=== PATIENT | male | born 1970 | race Caucasian/White ===

== ENCOUNTER 2022-10-05 07:56 | Emergency (ER) | payer BC ==
[~2022-10-05] VITALS: Ht 172.7 cm; Wt 79.5 kg
[2022-10-05 08:53] LABS: BASOPHILS # (AUTO) 0.1 X10'3 (0-0.2); EOSINOPHILS % (AUTO) 0.7 % (0-6); HEMATOCRIT 47.5 % (42.0-52.0); HEMOGLOBIN 16.1 g/dl (14.0-17.9); LYMPHOCYTES # (AUTO) 1.1 X10'3 (1.1-4.8); LYMPHOCYTES % (AUTO) 19.1 % (21-51); MEAN CORPUSCULAR VOLUME 91.1 FL (78-98); MEAN PLATELET VOLUME 7.1 FL (7.4-10.4); MONOCYTES # (AUTO) 0.4 X10'3 (0-0.9); MONOCYTES % (AUTO) 7.6 % (2-12); NEUTROPHILS # (AUTO) 4.1 X10'3 (1.8-7.7); NEUTROPHILS % (AUTO) 71.6 % (42-75); PLATELET COUNT 223 X10'3 (140-440); RED BLOOD COUNT 5.21 X10'6 (4.70-6.10); RED CELL DISTRIBUTION WIDTH 14.2 % (11.5-14.5); WHITE BLOOD COUNT 5.8 X10'3 (4.5-11.0)
[2022-10-05] MEDS ORDERED: normal saline 1000ml 1,000 ML IV ONE (09:05)
[2022-10-05 09:07] LABS: CLARITY,URINE CLEAR (Clear); COLOR,URINE STRAW (Yellow); GLUCOSE, URINE NEGATIVE (Neg); KETONES,URINE NEGATIVE (Neg); LEUKOCYTE ESTERASE ,URINE NEGATIVE (Neg); NITRITES, URINE NEGATIVE (Neg); OCCULT BLOOD,URINE NEGATIVE (Neg); PROTEIN,URINE NEGATIVE (Neg); UROBILINOGEN,URINE 0.2 E.U/dL (0.2-1.0)
[2022-10-05 09:17] LABS: UA COLLECTION TYPE URINAL
[2022-10-05 09:27] LABS: ALANINE AMINOTRANSFERASE 34 U/L (12-78); ALBUMIN 4.3 G/DL (3.4-5.0); ALBUMIN/GLOBULIN RATIO 1.2 (1.1-1.5); ALKALINE PHOSPHATASE 90 IU/L (46-116); ANION GAP 6 (8-16); ASPARTATE AMINO TRANSFERASE 47 U/L (10-37); BILIRUBIN,TOTAL 1.1 MG/DL (0.1-1.0); BLOOD UREA NITROGEN 5 MG/DL (7-18); BUN/CREATININE RATIO 7.6 (10.0-20.0); CALCIUM 9.4 MG/DL (8.5-10.1); CHLORIDE 99 MMOL/L (99-107); CREATININE 0.66 MG/DL (0.60-1.10); GLUCOSE 121 MG/DL (70-104); POTASSIUM 4.2 MMOL/L (3.5-5.1); SODIUM 136 MMOL/L (135-145); TOTAL CARBON DIOXIDE 30.8 MMOL/L (24-32); TOTAL PROTEIN 7.9 G/DL (6.4-8.2); eGFR > 90 ML/MIN
[2022-10-05 10:21] VITALS: BP 129/73
== END 2022-10-05 10:23 | disposition home or self-care (01) ==
LOC: ER 07:56
DX: E86.0 Dehydration (principal); Z88.2 Allergy status to sulfonamides; Z88.5 Allergy status to narcotic agent
CPT/HCPCS: 36415; 80053; 81003; 84145; 85025; 99283; J7030

== ENCOUNTER 2025-02-25 15:13 | Inpatient (IN) | payer SELFPAY ==
[~2025-02-25] VITALS: Ht 172.7 cm; Wt 89.8 kg
[2025-02-25 21:10] VITALS: BP 109/88; PULSE 114; RESP 17; TEMP 97.7; O2SAT 98
[2025-02-25] MEDS ORDERED: loperamide 2mg capsule PO PRN (22:20)
[2025-02-25] MEDS ORDERED: magnesium hydroxide 30ml (MOM) UD suspension PO PRN (22:20)
[2025-02-26] MEDS ORDERED: METH-806 PO (00:03)
[2025-02-26] MEDS: HYDROcodone/acetaminophen 10/325mg tab PO ONE (00:41)
[2025-02-26] MEDS ORDERED: HYDR-3972 PO (03:46)
[2025-02-26 07:00] VITALS: RESP 18; O2SAT 98
[2025-02-26 08:00] VITALS: BP_SYST 106; BP_SYST 122; BP_DIAS 69; BP_DIAS 83; PULSE 69; PULSE 98; RESP 18; TEMP 97.1; TEMP 97.5; O2SAT 98
[2025-02-26 08:42] LABS: MEAN PLATELET VOLUME 7.9 FL (7.4-10.4); RED CELL DISTRIBUTION WIDTH 14.7 % (11.5-14.5)
[2025-02-26] MEDS: HYDROcodone/acetaminophen 10/325mg tab PO PRN (08:52)
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
[2025-02-26 10:08] LABS: CHOL/HDL RATIO 7.9 (0.00-4.99); CREATININE 0.75 MG/DL (0.60-1.10); LACTATE DEHYDROGENASE 452 U/L (85-227); LDL CHOLESTEROL 146 MG/DL (50-100); TOTAL CARBON DIOXIDE 30.1 MMOL/L (24-32); eCRCL 111 ML/MIN; eGFR > 90 ML/MIN
[2025-02-26] MEDS: hydrocortisone 1% cream 28gm TP SCH (11:02)
[2025-02-26] MEDS ORDERED: iohexol 300mg/ml 100ml inj. ONE (11:08)
--- NOTE | 2025-02-26 11:55 | RADIOLOGY REPORT ---
EXAM: CT CT HEAD W/WO IV CONTRAST INDICATION: altered mental status, new onset psychotic symptoms TECHNIQUE: CT of the head with an without intravenous contrast. 80 mL of Omni 300 were injected Radiation Dose : 1. Head: CT Dose: CTDI volume is 58 mGy. Dose-length product is 2410 mGy*cm The dose indicators for CT are the volume Computed Tomography (CT) Dose Index (CTDIvol) and the Dose Length Product (DLP), and are measured in units of mGy and mGy-cm, respectively. These indicators are not patient dose, but values generated from the CT scanner acquisition factors. The report includes radiation exposure data for exposures received during this examination. COMPARISON: None FINDINGS: There is no evidence of acute intracranial hemorrhage, extra-axial collection, mass effect, midline shift, herniation or hydrocephalus. The ventricles, sulci and cisterns are age appropriate. The allred-white differentiation is intact. Patchy periventricular and subcortical white matter hypoattenuation is nonspecific but may be related to small vessel ischemic disease. The visualized paranasal sinuses and mastoid air cells are clear. The surrounding soft tissues and osseous structures are unremarkable. IMPRESSION: 1. No acute intracranial abnormality. Radiation optimization: All CT scans at this facility use at least one of these dose optimization techniques: automated exposure control mA and/or kV adjustment per patient size (includes targeted exams where dose is matched to clinical indication) or iterative reconstruction.
[2025-02-26] MEDS ORDERED: METH-603 PO (13:16)
[2025-02-26] MEDS: methadone 5mg tablet PO SCH (16:25)
[2025-02-26] MEDS: PETROLATUM,WHITE JELLY..G. 28.4 gm tube TP SCH (18:35)
[2025-02-26] MEDS ORDERED: HYDROcodone/acetaminophen 10/325mg tab PO PRN (18:35)
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
[2025-02-26 19:00] VITALS: RESP 16; O2SAT 99
[2025-02-26 20:00] VITALS: BP 124/69; PULSE 89; RESP 16; TEMP 97.6; O2SAT 99
[2025-02-26] MEDS ORDERED: hydrocortisone 1% cream 28gm TP SCH (20:00)
[2025-02-27] MEDS ORDERED: methadone 10mg tablet PO SCH
[2025-02-27 07:00] VITALS: RESP 14; O2SAT 99
[2025-02-27 07:32] VITALS: BP 110/62; PULSE 87; RESP 14; TEMP 97.7; O2SAT 99
[2025-02-27 08:31] LABS: HIV ANTIBODY 1&2 RAPID NON-REACTIVE (Neg)
[2025-02-27] MEDS ORDERED: iohexol 300mg/ml 100ml inj. ONE (10:56)
--- NOTE | 2025-02-27 12:46 | PROCEDURE NOTE ---
Procedure Note Providers to CC ~ Description: [place] EEG Note # Demographics Type of EEG Read: - Routine EEG - video Patient Location: Inpatient First Name: Isaiah Last Name: Benjamin Date of : 1970 Age: 54 Gender: Male Facility: [facility] Time of Initial Page (): 02/27/2025 10:06 First Contact with Site (): 02/27/2025 10:08 # EEG Interpretation Start Time of EEG Read (): 02/27/2025 10:22 Stop Time of EEG Read (): 02/27/2025 10:43 Duration: 0h 21m Technical Details: - The EEG electrodes were placed using the standard International 10-20 system of electrode placement. Video and an accessory EKG lead were used during the course of this study. Indication: - altered mental status # Description Photic Stimulation: NOT Performed Hyperventilation: NOT performed Phases Captured: - awake - drowsy Symmetry: symmetric Posterior Dominant Rhythm: absent Predominant Frequencies: non-posterior dominant alpha (8-12 Hz) Superimposed Frequencies: theta (4-7 Hz) Amplitude: normal Reactivity: yes Variability: yes Continuity: continuous EKG: NSR # Abnormalities Epileptiform Abnormalities: - NOT present Focal Slowing: no Seizure: - NOT present # Impression Impression: abnormal Mild Diffuse Slowing # Clinical Correlation Clinical Correlation: Diffuse slowing is non-specific and may be seen in the setting of diffuse cerebral dysfunction; such as toxic/metabolic/infectious encephalopathy or heavily sedating medication use. # Logistics Telemedicine: remote EEG review: EEG reviewed remotely # Demographics First Name: Isaiah Last Name: Benjamin Facility: [facility] Electronically signed at 02/27/2025 12:31 () by MD LEENA Tan POUYA MD Feb 27, 2025 12:46
--- NOTE | 2025-02-27 13:19 | RADIOLOGY REPORT ---
Exam: CT CT CHEST W/ IV CONTRAST Reason for study/ Clinical History: elevated D dimer, r/o PE Comparison Study: None Exam Date: 02/27/2025 11:39 AM Radiation Dose Information: CT Dose: CTDI volume is 17 mGy. Dose-length product is 651 mGy*cm Technique: After the uneventful administration of intravenous contrast intravenously, CT imaging was performed through the chest. Coronal and sagittal reformations were performed by the technologist. Findings: Lower neck: Unremarkable. Lungs and Pleura: 6 mm anterior subpleural nodule in the left lung apex (image 9). 16 mm cystic lesion in the left upper lobe with adjacent pleural thickening. No pleural effusions. Lymph nodes: No mediastinal, hilar, or axillary lymphadenopathy. Cardiovascular and Mediastinum: No significant pericardial effusion. Scattered coronary calcifications. No large central pulmonary emboli. Osseous and soft tissues: No suspicious osseous lesions. Upper abdomen: Diffuse hepatic steatosis. Apparent mucosal hyperenhancement and wall thickening of the stomach and proximal duodenum. Mild gallbladder wall thickening without significant distention likely reactive. IMPRESSION: Nondedicated CT chest exam to assess for pulmonary emboli. Given this limitation, no large central pulmonary embolism is noted. If there is persistent clinical concern, recommend CT PE protocol for further evaluation. 6 mm left lung apical nodule and 16 mm cystic lesion in the left upper lobe adjacent subpleural thickening. Recommend follow-up CT in 3-6 months to ensure stability. Apparent mild wall thickening and mucosal hyperenhancement of the stomach and proximal duodenum may be infectious /inflammatory. Correlate clinically. Hepatic steatosis.
--- NOTE | 2025-02-27 15:22 | ELECTROCARDIOGRAPH REPORT ---
[facility] Test Date: 2025-02-27 Test Time: 15:19:03 Pat Name: DARNELL BRYANT Department: [facility] Patient ID: [facility]-[id number] Room: 323 B Gender: M [place] [employer] Supervisor: DIONTE : 1970 Requested By: TERESA KAY Order Number: [id number] Reading MD: Dr. George Redman Measurements Intervals [place] Rate: 81 P: 60 OK: 152 QRS: 83 QRSD: 91 T: 102 QT: 458 QTc: 532 Interpretive Statements Sinus rhythm Nonspecific T abnormalities, lateral leads Prolonged QT interval Electronically Signed On 03-01-2025 13:18:[address] George Redman Please click the below link to view image of tracing.
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
[2025-02-27 20:00] VITALS: BP 159/96; PULSE 96; RESP 18; TEMP 97.3; O2SAT 100
[2025-02-28 07:00] VITALS: RESP 14; O2SAT 97
[2025-02-28 08:00] VITALS: BP 126/76; PULSE 88; RESP 12; TEMP 98.4; O2SAT 97
[2025-02-28 11:18] LABS: HBSAG SCREEN Negative (Negative); HEPATITIS C VIRUS ANTIBODY Non Reactive (Non Reactive)
[2025-02-28] MEDS ORDERED: iohexol 300mg/ml 100ml inj. ONE (13:50)
--- NOTE | 2025-02-28 15:18 | RADIOLOGY REPORT ---
Indication: Acute transaminitis Technique: CT axial images of the abdomen and pelvis are obtained with intravenous contrast. Coronal and sagittal reformats were obtained. Radiation Dose Information: CTDI volume is 23 mGy. Dose-length product is 1236 mGy*cm Comparison: None FINDINGS: Lung bases demonstrate pleural effusion. Adrenal glands, spleen, pancreas unremarkable. Severe hepatic steatosis. Gallbladder wall hyperemia. Cholelithiasis. Kidneys demonstrate no hydronephrosis. Gastric, esophageal varices. Stomach is moderately distended. There is wall thickening of the duodenum with surrounding stranding. Moderate volume stool in the colon. Edema/ stranding surrounding the large bowel. Fatty prominence of the large bowel Wall. No evidence for acute appendicitis. Abdominal aortic atherosclerotic disease. Bladder partially distended. No free pelvic fluid. No inguinal lymphadenopathy. Msry-er-fiflexrm bilateral sacroiliac degenerative joint disease. Qqvw-bh-yxqnphat thoracolumbar degenerative disc disease. IMPRESSION: Hepatic steatosis. Sequela of portal hypertension including esophageal and gastric varices. Duodenal wall thickening with surrounding stranding which could represent duodenitis. There is also edema and stranding surrounding the large bowel which could be secondary to colitis, inflammatory bowel disease. Fatty prominence of the large bowel wall may represent sequela of inflammatory bowel disease. Gallbladder wall hyperemia, cholelithiasis. Recommend HIDA scan to exclude cholecystitis. Other findings as described.
--- NOTE | 2025-02-28 16:00 | PROGRESS NOTE ---
Daily Progress Note Providers to CC ~ Antibiotic Timeout Antibiotic Ordered?: No Subjective This is the hospitalist progress note on patients hospitalized at [facility]. The patient complains of what he describes as eczema in his scattered throughout his body as significant erythematous plaques with some central scaling which is concerning for plaque psoriasis. I have elected start the patient on 60 mg of prednisone daily for seven days. The repeat CMPs not been obtained- CT scan with IV contrast demonstrated hepatic steatosis and portal hypertension with esophageal and gastric varices he also has possible duodenitis and possible inflammatory bowel disease as well as gallbladder wall hyperemia and cholelithiasis Objective Vital Signs Date Time Temp Pulse Resp B/P (MAP) Pulse Ox O2 Delivery O2 Flow Rate FiO2 02/28/25 09:08 14 02/28/25 08:00 98.4 88 126/76 (93) 97 Room Air Result Diagram: 02/26/25 0808 02/26/25 0808 Gen. No acute distress alert and oriented Lungs clear to ascultation bilaterally, no wheezes rales or rhonchi appreciated Heart normal sinus rhythm no murmurs rubs or clicks noted Abdomen soft nontender bowel sounds are normoactive Lower extremities no clubbing cyanosis, nor edema appreciated bilaterally Skin diffuse throughout the entire body erythematous plaques with some central scaling Coagulation Studies Laboratory Tests Test 02/26/25 14:22 D-Dimer 5.48 MG/L FEU (0-0.50) H D-Dimer Comment Problem\\Assessment\\Plan Problems/Diagnosis: (1) Unspecified psychosis # psychoses Followed by Psychiatry # diffuse skin rash # possible psoriasis- a CT of the abdomen is also suggestive of inflammatory bowel disease Prednisone 60 mg daily x7 days Recommend outpatient colonoscopy with biopsy # transaminitis Repeat CMP is pending Labs are concerning as well as CT scan of the abdomen and pelvis for alcohol use disorder CT of the abdomen and pelvis: "Hepatic steatosis. Sequela of portal hypertension including esophageal and gastric varices. Duodenal wall thickening with surrounding stranding which could represent duodenitis. There is also edema and stranding surrounding the large bowel which could be secondary to colitis, inflammatory bowel disease. Fatty prominence of the large bowel wall may represent sequela of inflammatory bowel disease. Gallbladder wall hyperemia, cholelithiasis. Recommend HIDA scan to exclude cholecystitis." # chronic opiate use On [place] and methadone which is continued Hospitalist service will continue to follow the patient and hospitalist service will keep an eye on the patient's rash Date of Service: Feb 28, 2025 Billing Provider: MERVAT DEL ANGEL DO Common Visit Codes: [id number] INP/OBS CARE(HIGH) MERVAT DEL ANGEL DO Feb 28, 2025 16:00
[2025-02-28 19:00] VITALS: RESP 18; O2SAT 97
[2025-02-28 20:00] VITALS: BP 117/62; PULSE 76; RESP 18; TEMP 97.3; O2SAT 97
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
[2025-03-01 07:00] VITALS: RESP 15; O2SAT 96
[2025-03-01 08:00] VITALS: BP 113/64; PULSE 76; RESP 15; TEMP 97.7; O2SAT 96
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
[2025-03-01 19:00] VITALS: RESP 17; O2SAT 98
[2025-03-01 20:00] VITALS: BP 106/79; PULSE 101; RESP 17; TEMP 97.9; O2SAT 98
[2025-03-02 07:00] VITALS: BP 138/84; PULSE 84; RESP 16; TEMP 97.6; O2SAT 99
--- NOTE | 2025-03-02 17:56 | PROGRESS NOTE- Residence ---
Progress Note - Resident Providers to CC Resident Creating Document: HOANG KATHLEEN, SANTANA CC: YRN BROWN MD ~ Antibiotic Timeout Antibiotic Ordered?: No Subjective Was seen and examined at bedside. Patient continues to complain of a rash that has very nonspecific with peeling of skin on the edges present. No plaques present. Patient denies pain or each present. It is present on the right lower extremity. At the time of admission, after reviewing his prior charts and photographs in the chart he had diffuse rash all over the body that kind of improved. Objective Vital Signs Date Time Temp Pulse Resp B/P (MAP) Pulse Ox O2 Delivery O2 Flow Rate FiO2 03/02/25 16:31 14 03/02/25 07:00 97.6 84 138/84 (102) 99 Room Air Result Diagram: 02/26/25 0808 02/26/25 08 General: Alert, awake, oriented, not in acute distress HEENT: PERRLA, no icterus, pallor, lymphadenopathy, carotid bruit Respiratory system: Bilateral vesicular breath sounds heard, no adventitious breath sounds CVS: S1-S2 heard, no murmurs/rubs/gallop GI: Soft, nontender, no organomegaly, no guarding/rigidity, bowel sounds present Neuro: No focal neurological deficits Extremities: 3+ pitting edema present in the right lower extremity, diffuse erythematous rash present with peeling of skin in the borders, no plaques present, no warmth or tenderness present. Skin: Warm and dry Coagulation Studies Laboratory Tests Test 02/26/25 14:22 D-Dimer 5.48 MG/L FEU (0-0.50) H D-Dimer Comment Assessment Assessment A 54-year-old male presented to the ED in view of psychotic symptoms and hallucinations. Patient is admitted as Mental Health Care unit for the assessment and management of new onset psychotic symptoms. Hospitalist team we will continue to follow up with the patient. Plan Plan New Onset psychosis Psychiatric management Diffuse skin rash Outpatient colonoscopy with biopsy Continue prednisolone for seven days Hydrocortisone cream for application Transaminitis Elevated AST and alkaline phosphatase Probably secondary to alcohol use and hepatic steatosis on CT abdomen Hospitalist team will continue to follow up with the patient Hoang Kathleen MD Internal Medicine, PGY 2 Date of Service: Mar 02, 2025 Billing Provider: YRN BROWN MD Common Visit Codes: [id number] INP/OBS CARE(MOD) HOANG KATHLEEN, RES Mar 02, 2025 17:55 YRN BROWN MD Mar 03, 2025 06:43
[2025-03-02 19:00] VITALS: RESP 18; O2SAT 97
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
[2025-03-02 20:00] VITALS: BP 131/83; PULSE 72; RESP 18; TEMP 96.8
[2025-03-03 07:30] VITALS: BP 141/85; PULSE 83; RESP 18; TEMP 97.5; O2SAT 98
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
[2025-03-03 19:00] VITALS: RESP 16; O2SAT 97
[2025-03-03 20:00] VITALS: BP 141/90; PULSE 64; RESP 16; TEMP 97.9; O2SAT 97
[2025-03-04 07:30] VITALS: RESP 12; O2SAT 98
[2025-03-04 08:00] VITALS: BP 139/90; PULSE 83; RESP 12; TEMP 97.7; O2SAT 98
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
--- NOTE | 2025-03-04 17:23 | PROGRESS NOTE ---
Daily Progress Note Providers to CC ~ Antibiotic Timeout Antibiotic Ordered?: No Subjective No new complaints, patient is seen resting comfortably. Objective Vital Signs Date Time Temp Pulse Resp B/P (MAP) Pulse Ox O2 Delivery O2 Flow Rate FiO2 03/04/25 13:58 16 03/04/25 08:00 97.7 83 139/90 (106) 98 03/04/25 07:30 Room Air awake alert oriented HEENT normocephalic atraumatic Neck supple no JVD Chest Clear to auscultation , no wheezes crackles or rhonchi Heart RRR Abdomen soft nontender no organomegaly Extremities No C/C/E Coagulation Studies Laboratory Tests Test 02/26/25 14:22 D-Dimer 5.48 MG/L FEU (0-0.50) H D-Dimer Comment Other Results Medications reviewed Problem\Assessment\Plan Problems/Diagnosis: (1) Unspecified psychosis # psychoses: Continue treat per psych recommendations. # Rash : Probable psoriasis- a CT of the abdomen is also suggestive of inflammatory bowel disease .On PO Prednisone 60 mg daily x7 days Recommend outpatient dermatology follow up # transaminitis : Recheck labs # chronic opiate use : On [place] and methadone which is continued I will sign off. Hospitalist team will continue follow the patient as per protocol. Disease contact the hospitalist team for any change in patient's medical condition. Date of Service: Mar 04, 2025 Billing Provider: CHARAN REZA MD Common Visit Codes: [id number] INP/OBS CARE(MOD) CHARAN REZA MD Mar 04, 2025 17:23
[2025-03-04 18:52] LABS: MEAN PLATELET VOLUME 8.3 FL (7.4-10.4); RED CELL DISTRIBUTION WIDTH 15.4 % (11.5-14.5)
[2025-03-04 19:00] VITALS: RESP 17; O2SAT 98
[2025-03-04 19:04] LABS: CREATININE 0.56 MG/DL (0.60-1.10); TOTAL CARBON DIOXIDE 29.6 MMOL/L (24-32); eCRCL 149 ML/MIN; eGFR > 90 ML/MIN
[2025-03-04 20:41] VITALS: BP 145/90; PULSE 91; RESP 17; TEMP 98; O2SAT 98
[2025-03-05 07:00] VITALS: BP 131/98; PULSE 98; RESP 15; TEMP 97.8; O2SAT 98
[2025-03-05] MEDS: hydrocortisone 1% OINTMENT 30gm tube TP SCH (07:59)
[2025-03-05 08:00] VITALS: RESP 15; O2SAT 99
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
[2025-03-05 20:00] VITALS: BP 130/82; PULSE 85; RESP 18; TEMP 97.3; O2SAT 100; O2SAT 98
[2025-03-06 07:23] VITALS: BP 117/73; PULSE 106; RESP 16; TEMP 98.2; O2SAT 99
[2025-03-06 07:59] VITALS: RESP 16; O2SAT 99
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
[2025-03-06 19:00] VITALS: RESP 15; O2SAT 97
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
[2025-03-06 20:00] VITALS: BP 108/79; PULSE 98; RESP 15; TEMP 97.6; O2SAT 97
[2025-03-07 08:03] LABS: MEAN PLATELET VOLUME 7.9 FL (7.4-10.4); RED CELL DISTRIBUTION WIDTH 15.2 % (11.5-14.5)
[2025-03-07] MEDS: amox tr/potassium clavulanate 875/125mg TAB PO SCH (08:03)
[2025-03-07 08:22] LABS: CREATININE 0.57 MG/DL (0.60-1.10); PRO BRAIN NATRIURETIC PEPTIDE 436 PG/ML (0-125); TOTAL CARBON DIOXIDE 32.1 MMOL/L (24-32); eCRCL 147 ML/MIN; eGFR > 90 ML/MIN
[2025-03-07 09:22] VITALS: BP 158/99; PULSE 76; RESP 16; TEMP 97.8; O2SAT 98
[2025-03-07 09:51] VITALS: RESP 16; O2SAT 98
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
[2025-03-07 19:00] VITALS: RESP 18; O2SAT 99
[2025-03-07 20:00] VITALS: BP 153/98; PULSE 62; RESP 18; TEMP 97.3; O2SAT 99
[2025-03-08] MEDS: mag hydrox/Alum hydrox/simeth 30ml oral suspension PO PRN (05:32)
[2025-03-08 07:00] VITALS: RESP 18; O2SAT 99
[2025-03-08 08:00] VITALS: BP 121/82; PULSE 103; RESP 18; TEMP 96.8; O2SAT 94
--- NOTE | 2025-03-08 08:50 | PROGRESS NOTE ---
Daily Progress Note Providers to CC ~ Antibiotic Timeout Antibiotic Ordered?: Yes Subjective Patient has no new complaints, seen resting comfortably. Objective Vital Signs Date Time Temp Pulse Resp B/P (MAP) Pulse Ox O2 Delivery O2 Flow Rate FiO2 03/08/25 06:05 18 03/07/25 20:00 97.3 62 153/98 (116) 99 03/07/25 19:00 Room Air Result Diagram: 03/07/25 0716 03/07/25 0716 Awake alert oriented HEENT normocephalic atraumatic Neck supple no JVD Chest Clear to auscultation , no wheezes crackles or rhonchi Heart RRR, No murmur gallop or rub Abdomen soft nontender no organomegaly Extremities No C/C/E Coagulation Studies Laboratory Tests Test 02/26/25 14:22 D-Dimer 5.48 MG/L FEU (0-0.50) H D-Dimer Comment Other Results Medications reviewed Problem\Assessment\Plan Problems/Diagnosis: (1) Unspecified psychosis # Psychoses: Continue treat per psych recommendations. # Rash : Probable psoriasis- Recommend outpatient dermatology follow up . Topical treatment. # Hepatic steatosis : Continue montior LFT's periodically. # Chronic opiate use : On [place] and methadone which is continued I will sign off. Hospitalist team will continue follow the patient as per protocol. Please contact the hospitalist team for any change in patient's medical condition. Date of Service: Mar 08, 2025 Billing Provider: CHARAN REZA MD Common Visit Codes: [id number] INP/OBS CARE(LOW) CHARAN REZA MD Mar 08, 2025 08:50
[2025-03-08 19:17] VITALS: RESP 16; O2SAT 97
[2025-03-08 19:20] VITALS: BP 138/88; PULSE 95; RESP 16; TEMP 97.2; O2SAT 97
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
[2025-03-09 07:00] VITALS: BP 147/97; PULSE 109; RESP 17; TEMP 97.2; O2SAT 98
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
[2025-03-09 19:00] VITALS: RESP 16; O2SAT 98
[2025-03-09 19:38] VITALS: BP 144/98; PULSE 94; RESP 16; TEMP 98; O2SAT 98
[2025-03-10 08:00] VITALS: BP 132/95; PULSE 101; RESP 17; TEMP 98.1; O2SAT 98
[2025-03-10 09:29] VITALS: RESP 16; O2SAT 98
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
[2025-03-10 19:00] VITALS: RESP 17; O2SAT 97
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
[2025-03-10 20:00] VITALS: BP 138/82; PULSE 91; RESP 17; TEMP 98.4; O2SAT 97
[2025-03-11 07:00] VITALS: RESP 17; O2SAT 97
[2025-03-11 08:00] VITALS: BP 109/77; PULSE 105; RESP 15; TEMP 98.4; O2SAT 98
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
[2025-03-11 19:00] VITALS: RESP 17; O2SAT 99
[2025-03-11 20:00] VITALS: BP 150/95; PULSE 88; RESP 17; TEMP 98.1; O2SAT 99
[2025-03-12 07:46] VITALS: BP 141/95; PULSE 101; RESP 18; TEMP 98; O2SAT 99
[2025-03-12 08:00] VITALS: RESP 18; O2SAT 99
[2025-03-12 10:41] LABS: MEAN PLATELET VOLUME 7.9 FL (7.4-10.4); RED CELL DISTRIBUTION WIDTH 14.9 % (11.5-14.5)
--- NOTE | 2025-03-12 10:52 | PROGRESS NOTE ---
Daily Progress Note Providers to CC ~ Antibiotic Timeout Antibiotic Ordered?: Yes Subjective This is the hospitalist progress note on patients hospitalized at [facility]. The patient continues to have a systemic skin rash. There is a circular lesion on his left trunk that looks similar to ringworm I am going to start the patient on fluconazole 200 mg daily for seven days did change a Claritin to PRN to scheduled dosing and added Singulair 10 mg daily. Objective Vital Signs Date Time Temp Pulse Resp B/P (MAP) Pulse Ox O2 Delivery O2 Flow Rate FiO2 03/12/25 09:35 16 03/12/25 08:00 99 Room Air 03/12/25 07:46 98.0 101 141/95 (110) Result Diagram: 03/12/25 1027 Gen. No acute distress alert and oriented Lungs clear to ascultation bilaterally, no wheezes rales or rhonchi appreciated Heart normal sinus rhythm no murmurs rubs or clicks noted Abdomen soft nontender bowel sounds are normoactive Lower extremities no clubbing cyanosis, nor edema appreciated bilaterally Skin diffuse throughout the entire body erythematous plaques Coagulation Studies Laboratory Tests Test 02/26/25 14:22 D-Dimer 5.48 MG/L FEU (0-0.50) H D-Dimer Comment Problem\Assessment\Plan Problems/Diagnosis: (1) Unspecified psychosis # Psychoses: Continue treat per psych recommendations. # Rash : Possible psoriasis- Recommend outpatient dermatology follow up . On hydrocortisone cream. 03/12 tinea corporis is also a possible diagnosis- started fluconazole 200 mg daily and recommend a seven day course, change Claritin from PRN to daily scheduled dosing and add Singulair 10 mg today and 10 mg daily, I reiterated to the patient the importance of getting a skin biopsy in the outpatient setting and possible colonoscopy to evaluate for inflammatory bowel disease # Hepatic steatosis : Continue montior LFT's periodically. # Chronic opiate use : On Cable and methadone which is continued Date of Service: Mar 12, 2025 Billing Provider: MERVAT DEL ANGEL DO Common Visit Codes: [id number] INP/OBS CARE(MOD) MERVAT DEL ANGEL DO Mar 12, 2025 10:52
[2025-03-12 12:28] LABS: CREATININE 0.56 MG/DL (0.60-1.10); TOTAL CARBON DIOXIDE 32.0 MMOL/L (24-32); eCRCL 149 ML/MIN; eGFR > 90 ML/MIN
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
[2025-03-12 19:00] VITALS: RESP 18; O2SAT 97
[2025-03-12 20:00] VITALS: BP 141/85; PULSE 80; RESP 18; TEMP 98.1; O2SAT 97
[2025-03-13 07:08] VITALS: BP 123/84; PULSE 111; RESP 15; TEMP 98.1; O2SAT 98
[2025-03-13] MEDS ORDERED: MONT-40 PO (11:10)
[2025-03-13] MEDS ORDERED: [UNRECOGNIZED DRUG - CODE] PO (11:10)
[2025-03-13] MEDS ORDERED: PRE5T PO (11:10)
[2025-03-13] MEDS ORDERED: FOLI0.4T3 PO (11:10)
[2025-03-13] MEDS ORDERED: FLUC100T64 PO (11:10)
[2025-03-13] MEDS ORDERED: thiamine tablet PO (11:10)
[2025-03-13] MEDS ORDERED: FURO20TA4 PO (11:10)
[2025-03-13] MEDS ORDERED: HYDR453.2 TP (11:10)
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
[2025-03-13 15:16] VITALS: RESP 16
== END 2025-03-13 16:30 | disposition home or self-care (01) | DRG 885 ==
LOC: ADULT MH 20:54 → UNDOADMIN 20:54 → ADULT MH 21:03
PROVIDERS: ADMIT Psychiatry & Neurology Psychiatry; ATTEND Psychiatry & Neurology Psychiatry
PROC: GZHZZZZ Group Psychotherapy (ICD-10-PCS; 2025-02-26)
PROC: 4A00X4Z Measurement of Central Nervous Electrical Activity, External Approach (ICD-10-PCS; principal; 2025-02-27)
PROC: GZ51ZZZ Individual Psychotherapy, Behavioral (ICD-10-PCS; 2025-03-04)
DX: F31.60 Bipolar disorder, current episode mixed, unspecified (principal); F29 Unspecified psychosis not due to a substance or known physiological condition; F10.20 Alcohol dependence, uncomplicated; K70.9 Alcoholic liver disease, unspecified; R45.851 Suicidal ideations; F41.1 Generalized anxiety disorder; G47.9 Sleep disorder, unspecified; F43.10 Post-traumatic stress disorder, unspecified; G89.29 Other chronic pain; Z87.891 Personal history of nicotine dependence; Z88.2 Allergy status to sulfonamides; Z88.5 Allergy status to narcotic agent
CPT/HCPCS: 36415; 70470; 71260; 74177; 80053; 80061; 82248; 82550; 82607; 83036; 83615; 83880; 84443; 85025; 85379; 86592; 86703; 86803; 87081; 87340; 87522; 93005; 95816; 99285; A6250; J7512; Q0177; Q9967